=== PATIENT | female | born 1985 | race Caucasian/White ===

== ENCOUNTER → 2022-04-03 16:11 | Outpatient (BNVA) | payer MEDICAID, SELFPAY | PROVIDERS: Visit Provider Family Medicine | DX: F41.1 Generalized anxiety disorder (principal); N80.9 Endometriosis, unspecified; G47.00 Insomnia, unspecified; R87.619 Unspecified abnormal cytological findings in specimens from cervix uteri; F41.0 Panic disorder [episodic paroxysmal anxiety]; F17.200 Nicotine dependence, unspecified, uncomplicated; Z71.6 Tobacco abuse counseling | CPT/HCPCS: 80053; 84439; 84443; 85025 ==

== ENCOUNTER 2022-04-06 17:41 | Emergency (ER) | payer MEDICAID, SELFPAY ==
[2022-04-06 17:57] VITALS: BP 131/89; PULSE 78; RESP 15; TEMP 36.9; O2SAT 98; BMI 26.2
--- NOTE | 2022-04-06 18:15 | ED_ITS ---
HPI - Chest Pain General: Chief Complaint: Chest Pain Stated Complaint: chest pains over a couple of weeks Time Seen by Provider: 04/06/22 18:15 History of Present Illness: Ms. Bro is a 36-year-old lady with history of anxiety and tobaccoism presenting to the emergency department due to abnormal feeling chest discomfort. She reports being in her baseline health without significant change and was sitting at dinner when she had sudden onset of presyncopal type feeling associated with a warm pressure in her chest and upper and lower extremities. The majority of the symptoms have improved however still does have some. Reports this feels not similar to prior anxiety attacks. I ntensity symptoms when present with severe. Course is improved. No other specific changes in health, exacerbating, or alleviating factors identified. Patient unsure of family coronary artery disease history secondary to being adopted. 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 Psychiatric care Tobacco use disorder, moderate, dependence Surgical History History of appendectomy History of bilateral tubal ligation History of History of cholecystectomy History of tonsillectomy Family History Father Cancer lung, colon, leukemia Lung disease Mother Epilepsy Psychiatric illness Other Hyperlipidemia Hypertension Denies family history of Diabetes CAD (coronary artery disease) Clotting disorder Dementia Chronic kidney disease (CKD) Anesthesia complication Bleeding disorder Stroke Social History Smoking and tobacco status: current every day smoker cigarettes [ Other cigarette details: 1/2 PPD, 25PY] and e-cigarettes E-Cigarette Details: e- cigarette E-cig/vape details: 1 cartrage lasts 2 weeks Smoking risk assessment/counseling performed?: No Alcohol intake: never Desire information about alcohol rehabilitation?: No Counseling given: No Desire information about substance/drug rehabilitation?: No Counseling given: No Adopted: Yes Caregiver/support person: No Lives independently: Yes Marital status: Single Number of children: 3 Current occupational status: employed Current occupation: Food prep Current gender identity: Female Female Reproductive History: Date of last menstrual period: 03/07/22 Para: 3 Spontaneous abortions: Yes Physical Exam Const: COMMON NORMALS: patient oriented x3 and alert GENERAL APPEARANCE: cooperative and well developed HENMT: COMMON NORMALS: normocephalic and atraumatic HEAD & SCALP: normocephalic and atraumatic THROAT: posterior oropharynx normal Eye: COMMON NORMALS: conjunctivae normal CONJUNCTIVA: Yes conjunctivae normal SCLERA: sclerae normal Neck/C-Spine: COMMON NORMALS: supple GENERAL: Yes trachea midline Resp: COMMON NORMALS: normal respiratory effort EFFORT & INSPECTION: Yes able to speak in complete sentences Cardio: COMMON NORMALS: regular rate and regular rhythm RATE: regular rate RHYTHM: regular rhythm GI: COMMON NORMALS: Soft to palpation PALPATION: Yes Soft to palpation and No Tenderness to palpation present (GI) PERCUSSION: normal to percussion Extremity: GENERAL: Yes normal exam except as noted and No edema Neuro: COMMON NORMALS: patient oriented x3, CN's II-XII intact bilaterally, moves all extremities, no focal motor deficits and no sensory deficits noted SENSORIUM/ORIENTATION: Yes alert and No Orientation impaired Psych: COMMON NORMALS: mental status grossly normal and Normal thought process present THOUGHT PROCESS: Normal thought process present Course Vital Signs: Vital signs: Vital Signs Temperature 98.4 F 04/06/22 17:57 Pulse Rate 77 04/06/22 21:42 Respiratory Rate 16 04/06/22 21:42 Blood Pressure 122/86 04/06/22 21:42 Pulse Oximetry 99 04/06/22 21:42 Oxygen Delivery Me thod 04/06/22 21:42 MDM - Chest Pain Medical Decision Making 36-year-old lady presenting with chest discomfort and presyncopal type feeling that occurred at rest. Patient is nontoxic on exam without focal neurologic deficits. EKG shows sinus rhythm with first-degree AV block and nonspecific ST segment abnormalities. No STEMI. Hematologic and metabolic panel essentially unremarkable with exception of minimal hypokalemia, TSH normal. Troponin negative. D-dimer negative. Chest x-ray with no lobar consolidation or pneumothorax. IV fluids and potassium replenishment ordered. Patient mildly improved on reexamination. Etiology of patient's symptoms is somewhat unclear, may be related to anxiety versus other cause though does not appear to need inpatient management at this time. The results of ED evaluation were discussed with the patient including prescriptions and/or symptomatic cares (if applicable) including appropriate and responsible use, followup plan, and return precautions. The patient verbalized understanding and felt safe for discharge. Medical Records I reviewed the patient's medical records. Lab Data I reviewed the patient's lab results. : 04/06/22 18:41 04/06/22 18:41 Radiology Impressions Chest X-Ray 04/06/22 18: IMPRESSION: No acute findings. Laboratory Results WBC 9.4 10^3/uL (4.0-10.0) 04/06/22 18: RBC 4.68 10^6/uL (4.1-5.3) 04/06/22 18: Hgb 14.1 g/dL (11.5-15.3) 04/06/22 18: Hct 39.9 % (37.0-47.0) 04/06/22 18: MCV 85.3 fl (81-99) 04/06/22 18: MCH 30.1 pg (28.0-34.0) 04/06/22 18: MCHC 35.3 g/dL (30.0-36.0) 04/06/22 18: RDW 11.9 % (12.1-15.1) L 04/06/22 18: Plt Count 256 10^3/cmm (130-400) 04/06/22 18: MPV 10.9 fL (7.4-10.4) H 04/06/22 18: Neut % (Auto) 62.6 % 04/06/22 18: Lymph % (Auto) 27.5 % 04/06/22 18: [place] % (Auto) 7.4 % 04/06/22 18: Eos % (Auto) 1.2 % 04/06/22 18:41 Baso % (Auto) 1.0 % 04/06/22 18:41 Neut # (Auto) 5.91 10^3/uL (1.8-7.7) 04/06/22 18:41 Lymph # (Auto) 2.6 10^3/uL (0.8-4.8) 04/06/22 18:41 [place] # (Auto) 0.7 10^3/uL (0.2-0.9) 04/06/22 18:41 Eos # (Auto) 0.1 10^3/uL (0.0-0.8) 04/06/22 18:41 Baso # (Auto) 0.1 10^3/uL (0.0-0.1) 04/06/22 18:41 Nucleated RBC % (auto) 0 % 04/06/22 18:41 Nucleated RBCs # 0.0 /100WBC 04/06/22 18:41 D-Dimer <= 0.27 ug/mIFEU (0-0.59) 04/06/22 18:41 Sodium 137 mmol/L (136-145) 04/06/22 18:41 Potassium 3.4 mmol/L (3.5-5.1) L 04/06/22 18:41 Chloride 102 mmol/L (98-107) 04/06/22 18:41 Carbon Dioxide 23 mmol/L (22-29) 04/06/22 18:41 Anion Gap 15.4 (5-19) 04/06/22 18:41 BUN 12 mg/dL (6-20) 04/06/22 18:41 Creatinine 0.6 mg/dL (0.5-0.9) 04/06/22 18:41 GFR Calculation 111.9 mL/min (90-130) 04/06/22 18:41 Glucose 95 mg/dL (65-115) 04/06/22 18:41 Calculated Osmolality 284 mOsm/kg (285-295) L 04/06/22 18:41 Calcium 9.7 mg/dL (8.5-10.5) 04/06/22 18:41 Magnesium 2.0 mg/dL (1.7-2.3) 04/06/22 18:41 Total Bilirubin 0.4 mg/dL (0.15-1.2) 04/06/22 18:41 AST 11 U/L (0-32) 04/06/22 18:41 ALT 8 U/L (0-33) 04/06/22 18:41 Alkaline Phosphatase 57 U/L (35-105) 04/06/22 18:41 Troponin T Baseline 6 ng/L (0-10) 04/06/22 18:41 Troponin T 120 Minute 6.00 ng/L (0-10) 04/06/22 20:39 Delta Troponin T 0 ABS# (0-10) 04/06/22 20:39 Total Protein 6.8 g/dL (6.6-8.7) 04/06/22 18:41 Albumin 4.1 g/dL (3.5-5.2) 04/06/22 18:41 Globulin 2.7 g/dL (1.3-4.6) 04/06/22 18:41 Lipase 32 U/L (13-60) 04/06/22 18:41 TSH 0.69 uIU/mL (0.27-4.20) 04/06/22 18:41 HCG, Qual Negative (Negative) 04/06/22 19:55 Discharge Plan Discharge Patient Disposition: Home Clinical Impression: Chest pain, Paresthesia, Pre-syncope, Palpitations Condition: Stable Prescriptions: New buspirone 15 mg tablet 15 mg PO BID Qty: 30 1RF No Action lorazepam [Ativan] 1 mg tablet 1 mg PO BID PRN (Reason: anxiety) Qty: 10 0RF Prozac 20 mg capsule 20 mg PO QAM melatonin 10 mg capsule 10 mg PO BEDTIME Discharge Orders: Discharge ED (Routine); Ordered 04/06/22 Ordered By: Steve Mitchell Discharge Diet: Usual diet Discharge Activity: Increase activity as tolerated Patient Instructions: Chest Pain (ED), Paresthesia (ED) Activity Restrictions/Additional Instructions: Thank you for visiting the emergency department. You were seen evaluated for sudden onset of abnormal feeling. The exact cause of the symptoms is unclear though does not appear to need hospitalization at this time. Please follow-up with a primary care provider. Return to the emergency department for worsening symptoms or anything else that you are concerned about a feel needs emergency department evaluation. Coding Level of Care Code ED [employer] for Piero Morgan
--- NOTE | 2022-04-06 18:29 | ECG_ITS ---
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 Measurements Intervals [place] Rate: 76 P: 44 CO: 206 QRS: 72 QRSD: 94 T: 41 QT: 376 QTc: 425 Interpretive Statements SINUS RHYTHM No previous ECG available for comparison Electronically Signed On 04-06-2022 21:38:00 CDT by Tawanna Martin M.D. [id number]
--- NOTE | 2022-04-06 18:29 | XRR_ITS ---
PROCEDURE INFORMATION: Exam: XR Chest Exam date and time: 04/06/2022 6:41 PM Age: 36 years old Clinical indication: Pain; Chest pressure; Additional info: Cp TECHNIQUE: Imaging protocol: Radiologic exam of the chest. Views: 1 view. COMPARISON: No relevant prior studies available. FINDINGS: Lungs: Unremarkable. No consolidation. Pleural spaces: Unremarkable. No pleural effusion. No pneumothorax. Heart/Mediastinum: Unremarkable. No cardiomegaly. Bones/joints: Unremarkable. XR/XR chest 1V portable [id number] IMPRESSION: No acute findings.
[2022-04-06] MEDS: sodium chloride 0.9% 1,000 ML 999 ML IV (18:48)
[2022-04-06 18:52] LABS: Basophils # 0.1 10^3/uL (0.0-0.1); Eosinophils # 0.1 10^3/uL (0.0-0.8); Eosinophils % 1.2 %; Hematocrit 39.9 % (37.0-47.0); Hemoglobin 14.1 g/dL (11.5-15.3); Lymphocytes # 2.6 10^3/uL (0.8-4.8); Lymphocytes % 27.5 %; Mean Corpuscular HGB Conc 35.3 g/dL (30.0-36.0); Mean Corpuscular Hemoglobin 30.1 pg (28.0-34.0); Mean Corpuscular Volume 85.3 fl (81-99); Mean Platelet Volume 10.9 fL (7.4-10.4); Monocytes # 0.7 10^3/uL (0.2-0.9); Monocytes % 7.4 %; Neutrophils # 5.91 10^3/uL (1.8-7.7); Neutrophils % 62.6 %; Nucleated Red Blood Cells % 0 %; Platelet Count 256 10^3/cmm (130-400); Red Blood Count 4.68 10^6/uL (4.1-5.3); Red Cell Distribution Width 11.9 % (12.1-15.1); White Blood Count 9.4 10^3/uL (4.0-10.0)
[2022-04-06 19:01] LABS: D Dimer <= 0.27 ug/mIFEU (0-0.59)
[2022-04-06 19:15] LABS: Troponin(5th) Baseline 6 ng/L (0-10)
[2022-04-06 19:20] LABS: Alanine Aminotransferase 8 U/L (0-33); Albumin Level 4.1 g/dL (3.5-5.2); Alkaline Phosphatase 57 U/L (35-105); Anion Gap 15.4 (5-19); Aspartate Amino Transferase 11 U/L (0-32); Blood Urea Nitrogen 12 mg/dL (6-20); Calcium 9.7 mg/dL (8.5-10.5); Carbon Dioxide 23 mmol/L (22-29); Chloride 102 mmol/L (98-107); Globulin 2.7 g/dL (1.3-4.6); Glomerular Filtration Rate 111.9 mL/min (90-130); Glucose 95 mg/dL (65-115); Lipase 32 U/L (13-60); Osmolality Calculated 284 mOsm/kg (285-295); Potassium 3.4 mmol/L (3.5-5.1); Sodium 137 mmol/L (136-145); Thyroid Stimulating Hormone 0.69 uIU/mL (0.27-4.20); Total Bilirubin 0.4 mg/dL (0.15-1.2); Total Protein 6.8 g/dL (6.6-8.7)
[2022-04-06] MEDS: potassium chloride ER 20 mEq Tablet 40 MEQ PO (20:01)
[2022-04-06 20:11] LABS: HCG Qualitative Urine. Negative (Negative)
--- NOTE | 2022-04-06 21:12 | ECG_ITS ---
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 Measurements Intervals [place] Rate: 75 P: 61 [place]: 204 QRS: 88 QRSD: 93 T: 72 QT: 395 QTc: 441 Interpretive Statements SINUS RHYTHM MODERATE T-WAVE ABNORMALITY, CONSIDER ANTERIOR ISCHEMIA [-0.1+ mV T-WAVE IN V3/V4] Compared to ECG 04/06/2022 18:21:17 T-wave abnormality now present Possible ischemia now present Electronically Signed On 04-07-2022 7:48:00 CDT by Tawanna Martin M.D. [id number]
[2022-04-06 21:22] LABS: Troponin 5 2HR Delta 0 ABS# (0-10)
[2022-04-06 21:42] VITALS: BP 122/86; PULSE 77; RESP 16; O2SAT 99
== END 2022-04-06 21:45 | disposition home or self-care (01) ==
PROVIDERS: Emergency Provider Emergency Medicine
DX: R07.9 Chest pain, unspecified (principal); R20.2 Paresthesia of skin; R55 Syncope and collapse; R00.2 Palpitations; F17.210 Nicotine dependence, cigarettes, uncomplicated
CPT/HCPCS: 71045; 80053; 81025; 83690; 83735; 84443; 84484; 85025; 85378; 93005; 96360; 99285; J7030

== ENCOUNTER 2022-04-07 00:32 | Emergency (ER) | payer MEDICAID, SELFPAY ==
[2022-04-07 00:40] VITALS: BP 140/74; PULSE 76; RESP 16; TEMP 36.8; O2SAT 96
[2022-04-07 00:43] VITALS: BP 140/74; PULSE 76; RESP 16; TEMP 36.8; O2SAT 96; BMI 23.0
--- NOTE | 2022-04-07 01:26 | PC.NURSE ---
REPORT GIVEN TO SUSANA FLOWERS.
[2022-04-07] MEDS: LORazepam 1 mg Tablet PO (01:30)
[2022-04-07 02:50] VITALS: PULSE 83; RESP 16; O2SAT 98
--- NOTE | 2022-04-07 03:05 | ED.C_ITS ---
HPI - Psych General: Chief Complaint: Psychiatric Symptoms Stated Complaint: Mental Health Eval Time Seen by Provider: 04/07/22 00:54 Source: patient History of Present Illness: 36-year-old female with a history of anxiety and panic disorder. She was here a few hours ago to be evaluated for chest discomfort, likely related to her anxiety. Her work-up was negative at that point. She does not abuse any substances per her history. She notes that she has had anxiety that has been significant for the past week or so. She has had 10 hours of sleep in the last week. She denies homicidal or suicidal ideation. She was admitted as an inpatient in [place] several months ago, but this is her only psychiatric admission. She says I would love to stay and get some rest . complaint: other Onset (ago): day(s) Duration: constant History of same: Yes Relieving factors: none Context: significant life stressor Associated symptoms: Deny auditory hallucinations, visual hallucinations, delusions, depression, homicidal ideation or suicidal ideation Treatments prior to arrival: none Review of Systems Const: Denies: fever(s), chills or body aches Eyes: Denies: change in vision Card: Denies: chest pain or palpitations Resp: Denies: dyspnea, productive cough, non-productive cough or wheezing GI: Denies: abdominal pain, nausea, vomiting, diarrhea or hematochezia : Denies: difficulty voiding Skin/Breast: Denies: rash Neuro: Denies: headache(s), weakness in extremities, dizziness or confusion Psych: Denies: depression, visual hallucinations, auditory hallucinations, suicidal ideation or homicidal ideation [facility] ED PFSH: Medical History Abnormal Pap smear of cervix Anxiety Endometriosis Generalized anxiety disorder History of recent neurosurgical procedure 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 Psychiatric care Tobacco use disorder, moderate, dependence Surgical History History of appendectomy History of bilateral tubal ligation History of History of cholecystectomy History of tonsillectomy Family History (Updated 04/03/22 @ 15:[address]amez MD) Father Cancer lung, colon, leukemia Lung disease Mother Epilepsy Psychiatric illness Other Hyperlipidemia Hypertension Denies family history of Diabetes CAD (coronary artery disease) Clotting disorder Dementia Chronic kidney disease (CKD) Anesthesia complication Bleeding disorder Stroke Social History Smoking and tobacco status: current every day smoker cigarettes [ Other cigarette details: 1/2 PPD, 25PY] and e-cigarettes E-Cigarette Details: e- cigarette E-cig/vape details: 1 cartrage lasts 2 weeks Smoking risk assessment/counseling performed?: No Alcohol intake: never Desire information about alcohol rehabilitation?: No Counseling given: No Desire information about substance/drug rehabilitation?: No Counseling given: No Adopted: Yes Caregiver/support person: No Lives independently: Yes Marital status: Single Number of children: 3 Current occupational status: employed Current occupation: Food prep Current gender identity: Female Female Reproductive History: Date of last menstrual period: 03/07/22 Para: 3 Spontaneous abortions: Yes Physical Exam Const: COMMON NORMALS: no acute distress GENERAL APPEARANCE: cooperative, comfortable and anxious; not ill appearing HENMT: COMMON NORMALS: normocephalic, atraumatic and Normal external nose present HEAD & SCALP: normocephalic and atraumatic FACE & SINUS: normal facial exam NOSE: Normal external nose present Eye: COMMON NORMALS: Equal, round and reactive pupils present and EOMs intact bilaterally PUPIL: Yes Equal, round and reactive pupils present Neck/C-Spine: GENERAL: Yes trachea midline Chest: CHEST: Yes Symmetrical chest wall rise Resp: COMMON NORMALS: normal respiratory effort, No retractions, No use of accessory muscles and clear to auscultation bilaterally AUSCULTATION: clear to auscultation bilaterally Cardio: COMMON NORMALS: regular rate and regular rhythm RATE: regular rate RHYTHM: regular rhythm GI: COMMON NORMALS: Normal to inspection, nondistended, normoactive bowel sounds present Extremity: COMMON NORMALS: no pedal edema Neuro: GEREMIAS COMA SCALE: document GCS findings Geremias coma scale eye opening: Spontaneous [place] coma scale verbal response: Orientated [place] coma scale motor response: Obey commands Geremias coma scale total score: 15 SENSORY EXAM: Yes extremities (intact) Psych: COMMON NORMALS: speech normal SPEECH: Yes normal speech THOUGHT CONTENT: No delusions Skin: COMMON NORMALS: no rashes or lesions noted GENERAL SKIN EXAM: no rashes or lesions noted Course Vital Signs: Vital signs: Vital Signs Temperature 98.2 F 04/07/22 00:43 Pulse Rate 83 10/29/22 02:50 Respiratory Rate 16 04/07/22 02:50 Blood Pressure 140/74 04/07/22 00:43 Pulse Oximetry 98 04/07/22 02:50 Oxygen Delivery Me thod 04/07/22 00:43 MDM - Psych Medical Decision Making This patient is completely medically stable. She has had labs within the last few hours that are not remarkable. She presents with anxiety and panic symptoms. She denies other illness. She is not homicidal or suicidal. We currently do not have bed capacity for this patient in our neuropsychiatric unit, and she does not meet admission criteria. She was informed of this. We will treat her anxiety/panic. Zyprexa Zydis was ordered for her, but she declined this, stating that it gave her diarrhea in the past. She is given oral Ativan. She will be prescribed a short course of Ativan, and she has an appointment at [facility] on 04/26. Discharge Plan Discharge Patient Disposition: Home Clinical Impression: Anxiety, Panic disorder Condition: Stable Prescriptions: New Ativan 1 mg tablet 1 mg PO BID PRN (Reason: anxiety) Qty: 10 0RF No Action fluoxetine [Prozac] 20 mg capsule 20 mg PO DAILY Qty: 30 0RF melatonin 10 mg capsule 10 mg PO DAILY Qty: 90 0RF buspirone 15 mg tablet 15 mg PO BID Qty: 30 1RF Discharge Orders: Discharge ED (Routine); Ordered 04/07/22 Ordered By: Bacilio Gilbert Patient Instructions: Generalized Anxiety Disorder (ED), Panic Disorder (ED) Activity Restrictions/Additional Instructions: Keep your appointment with behavioral health. Medications as directed. In particular, use the medication to help you rest or sleep. Return for thoughts or wishes to harm your self or anyone else. Coding Level of Care Code ED [employer] for Piero Morgan
== END 2022-04-07 02:51 | disposition home or self-care (01) ==
PROVIDERS: Emergency Provider Emergency Medicine
DX: F41.9 Anxiety disorder, unspecified (principal); F41.0 Panic disorder [episodic paroxysmal anxiety]; F17.210 Nicotine dependence, cigarettes, uncomplicated
CPT/HCPCS: 99283

== ENCOUNTER 2022-04-07 19:57 | Emergency (ER) | payer MEDICAID, SELFPAY ==
[2022-04-07 20:44] VITALS: BP 129/81; PULSE 95; RESP 15; TEMP 36.9; O2SAT 99; BMI 26.6
--- NOTE | 2022-04-07 21:11 | W.ED.PSYCHS ---
Documented by User: KELLY Barnett 04/07/22 23:13 HPI - Psych General: Chief Complaint: Psychiatric Symptoms Stated Complaint: Mental health eval Time Seen by Provider: 04/07/22 20:53 History of Present Illness: Patient is a 36-year-old female comes to the ED for mental health evaluation. She was seen here in the ED for same complaint last night. She has a history of anxiety and takes lorazepam to help with her anxiety. Her anxiety is currently elevated and she states that during these times she gets more paranoid and is afraid to go out in public. She states that she is always looking over her shoulder when driving or when out in the public. Denies any SI or HI. Denies any alcohol or drug use. Associated symptoms: Deny homicidal ideation or suicidal ideation Review of Systems Const: Denies: fever(s), chills or fatigue Eyes: Denies: change in vision or eye discomfort ENMT: Denies: throat pain, odynophagia, nasal discharge or nasal congestion Card: Denies: chest pain, palpitations, edema, swelling of feet/ankles, dyspnea on exertion or orthopnea Resp: Denies: dyspnea, productive cough or non-productive cough GI: Denies: abdominal pain, nausea, vomiting, diarrhea, constipation or hematochezia : Denies: flank pain, dysuria or hematuria Musc: Denies: neck pain, back pain or extremity swelling Skin/Breast: Denies: rash or new lesions Neuro: Denies: headache(s), numbness in extremities or weakness in extremities Psych: Reports: anxiety and paranoia; Denies: suicidal ideation or homicidal ideation [facility] ED PFSH: Medical History Abnormal Pap smear of cervix Anxiety Endometriosis Generalized anxiety disorder History of recent neurosurgical procedure 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 Psychiatric care Tobacco use disorder, moderate, dependence Surgical History History of appendectomy History of bilateral tubal ligation History of History of cholecystectomy History of tonsillectomy Family History Father Cancer lung, colon, leukemia Lung disease Mother Epilepsy Psychiatric illness Other Hyperlipidemia Hypertension Denies family history of Diabetes CAD (coronary artery disease) Clotting disorder Dementia Chronic kidney disease (CKD) Anesthesia complication Bleeding disorder Stroke Social History Smoking and tobacco status: current every day smoker cigarettes [ Other cigarette details: 1/2 PPD, 25PY] and e-cigarettes E-Cigarette Details: e-cigarette E-cig/vape details: 1 cartrage lasts 2 weeks Smoking risk assessment/counseling performed?: No Alcohol intake: never Desire information about alcohol rehabilitation?: No Counseling given: No Desire information about substance/drug rehabilitation?: No Counseling given: No Adopted: Yes Caregiver/support person: No Lives independently: Yes Marital status: Single Number of children: 3 Current occupational status: employed Current occupation: Food prep Current gender identity: Female Female Reproductive History: Date of last menstrual period: 03/10/22 Para: 3 Spontaneous abortions: Yes Physical Exam Const: COMMON NORMALS: no acute distress, patient oriented x3, healthy appearing and alert GENERAL APPEARANCE: cooperative and comfortable HENMT: COMMON NORMALS: normocephalic HEAD & SCALP: normocephalic MOUTH: Normal oral and palatal mucosa present THROAT: posterior oropharynx normal and uvula midline Neck/C-Spine: COMMON NORMALS: supple GENERAL: Yes normal visual inspection Resp: COMMON NORMALS: normal respiratory effort, No retractions, No use of accessory muscles and clear to auscultation bilaterally AUSCULTATION: clear to auscultation bilaterally Cardio: COMMON NORMALS: regular rate, regular rhythm, S1 normal heart sound present, S2 normal heart sound present, No gallops present (Cardio), No clicks present (Cardio), No murmurs present (Cardio) and Peripheral pulses 2+ throughout RATE: regular rate RHYTHM: regular rhythm HEART SOUNDS: S1 normal heart sound present and S2 normal heart sound present PERIPHERAL PULSES: Peripheral pulses 2+ throughout GI: COMMON NORMALS: Normal to inspection, nondistended, normoactive bowel sounds present, Soft to palpation, non-tender and no masses PALPATION: Yes Soft to palpation : COMMON NORMALS: Yes no CVA tenderness BLADDER/KIDNEY EXAM: Yes no CVA tenderness Back/Pelvis: COMMON NORMALS: no CVA tenderness Extremity: COMMON NORMALS: normal to inspection Neuro: COMMON NORMALS: patient oriented x3 SENSORIUM/ORIENTATION: Yes alert GAIT: Yes Normal gait present Psych: COMMON NORMALS: mental status grossly normal, Normal thought process present, cooperative, normal affect, speech normal, activity/motor behavior normal, denies homicidal ideation and denies suicidal ideation SPEECH: Yes normal speech THOUGHT PROCESS: Normal thought process present Skin: GENERAL SKIN EXAM: dry skin Course Reevaluation(s): Reevaluation #1: I went in to talk with patient about my conversation with Dr. Claros and how she does not meet criteria for admission into the NPU and that a NPU was full and will not be having any discharges probably till Saturday. Patient then stated that she did not have anywhere to go and that she is homeless. She says that part of the reason she wants to get into the NPU is because she has nowhere to go. Time: 21:28 Consultations: Consultation #1: I called Dr. Claros and talked with him about patient case. He recommended that patient does not meet admission criteria at this time and the Neuropsych Unit is currently full. She can follow-up with behavioral health at her scheduled appointment on April 26. Time: 21:20 Vital Signs: Vital signs: Vital Signs Temperature 98.4 F 04/07/22 20:44 Pulse Rate 95 04/07/22 20:44 Respiratory Rate 15 04/07/22 20:44 Blood Pressure 129/81 04/07/22 20:44 Pulse Oximetry 99 04/07/22 20:44 Oxygen Delivery Me thod 04/07/22 20:44 MDM - Psych Medical Decision Making Patient was seen here in the ED yesterday on April 07 and was trying to get admitted to NPU so she could have a place to sleep tonight. patient is completely medically stable.? She presents with anxiety and panic symptoms.? She denies other illness.? She is not homicidal or suicidal.? I spoke with Dr. Claros and he stated that patient does not meet admission criteria at this time and we currently do not have bed capacity for this patient in our neuropsychiatric unit either. She was informed of this and afterward she said part of her complaint is that she is homeless and does not have a place to go and was looking for a place to stay in the NPU. She is stable for discharge home and told to continue taking her previously prescribed medications. She has an appointment at [facility] on 04/26. Discharge Plan Discharge Patient Disposition: Home Clinical Impression: Anxiety Condition: Stable Prescriptions: No Action fluoxetine [Prozac] 20 mg capsule 20 mg PO DAILY Qty: 30 0RF melatonin 10 mg capsule 10 mg PO DAILY Qty: 90 0RF buspirone 15 mg tablet 15 mg PO BID Qty: 30 1RF Ativan 1 mg tablet 1 mg PO BID PRN (Reason: anxiety) Qty: 10 0RF Discharge Orders: Discharge ED (Routine); Ordered 04/07/22 Ordered By: Dusty Alexander Discharge Diet: Regular Discharge Activity: Resume usual activity Patient Instructions: Anxiety (ED) Activity Restrictions/Additional Instructions: Follow-up with behavioral health at your next scheduled appointment on April 26. Continue taking all home medications as previously prescribed. Return to the ER or your medical provider if condition worsens. Please read and understand discharge instructions. Thank you for choosing [facility] for your healthcare needs today. Please realize this is an emergency room and that we are providing you with a medical screening exam and this may not be complete and all inclusive of all the testing and or work up that you may need to determine your ailment or severity of your illness. It is very important that you follow up as instructed or that you return to the Emergency Department should you have concerns or if your condition changes or worsens in any way. 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 Psychiatric care Tobacco use disorder, moderate, dependence Surgical History History of appendectomy History of bilateral tubal ligation History of History of cholecystectomy History of tonsillectomy Family History Father Cancer lung, colon, leukemia Lung disease Mother Epilepsy Psychiatric illness Other Hyperlipidemia Hypertension Denies family history of Diabetes CAD (coronary artery disease) Clotting disorder Dementia Chronic kidney disease (CKD) Anesthesia complication Bleeding disorder Stroke Social History Smoking and tobacco status: current every day smoker cigarettes [ Other cigarette details: 1/2 PPD, 25PY] and e-cigarettes E-Cigarette Details: e-cigarette E-cig/vape details: 1 cartrage lasts 2 weeks Smoking risk assessment/counseling performed?: No Alcohol intake: never Desire information about alcohol rehabilitation?: No Counseling given: No Desire information about substance/drug rehabilitation?: No Counseling given: No Adopted: Yes Caregiver/support person: No Lives independently: Yes Marital status: Single Number of children: 3 Current occupational status: employed Current occupation: Food prep Current gender identity: Female Course Vital Signs: Vital signs: Vital Signs Temperature 98.4 F 04/07/22 20:44 Pulse Rate 95 04/07/22 20:44 Respiratory Rate 15 04/07/22 20:44 Blood Pressure 129/81 04/07/22 20:44 Pulse Oximetry 99 04/07/22 20:44 Oxygen Delivery Me thod 04/07/22 20:44 MDM - Psych Medical Decision Making Patient was seen here in the ED yesterday on April 07 and was trying to get admitted to NPU so she could have a place to sleep tonight. patient is completely medically stable.? She presents with anxiety and panic symptoms.? She denies other illness.? She is not homicidal or suicidal.? I spoke with Dr. Claros and he stated that patient does not meet admission criteria at this time and we currently do not have bed capacity for this patient in our neuropsychiatric unit either. She was informed of this and afterward she said part of her complaint is that she is homeless and does not have a place to go and was looking for a place to stay in the NPU. She is stable for discharge home and told to continue taking her previously prescribed medications. She has an appointment at [facility] on 04/26. This patient was originally seen by Mr. Benjamin PA-C.? I agree with his history, evaluation, and treatment. Discharge Plan Discharge Patient Disposition: Home Clinical Impression: Anxiety Condition: Stable Prescriptions: No Action fluoxetine [Prozac] 20 mg capsule 20 mg PO DAILY Qty: 30 0RF melatonin 10 mg capsule 10 mg PO DAILY Qty: 90 0RF buspirone 15 mg tablet 15 mg PO BID Qty: 30 1RF Ativan 1 mg tablet 1 mg PO BID PRN (Reason: anxiety) Qty: 10 0RF Discharge Orders: Discharge ED (Routine); Ordered 04/07/22 Ordered By: Dusty Alexander Discharge Diet: Regular Discharge Activity: Resume usual activity Patient Instructions: Anxiety (ED) Activity Restrictions/Additional Instructions: Follow-up with behavioral health at your next scheduled appointment on April 26. Continue taking all home medications as previously prescribed. Return to the ER or your medical provider if condition worsens. Please read and understand discharge instructions. Thank you for choosing [facility] for your healthcare needs today. Please realize this is an emergency room and that we are providing you with a medical screening exam and this may not be complete and all inclusive of all the testing and or work up that you may need to determine your ailment or severity of your illness. It is very important that you follow up as instructed or that you return to the Emergency Department should you have concerns or if your condition changes or worsens in any way. Coding Level of Care Code ED Geospatial Technologist for Piero Morgan Exam Comprehensive
== END 2022-04-07 21:38 | disposition home or self-care (01) ==
PROVIDERS: Emergency Provider Physician Assistant
DX: F41.9 Anxiety disorder, unspecified (principal); F17.210 Nicotine dependence, cigarettes, uncomplicated
CPT/HCPCS: 99283

== ENCOUNTER 2022-04-10 15:50 | Inpatient (IN) | payer MEDICAID, SELFPAY ==
[2022-04-10 15:59] VITALS: BP 134/81; PULSE 97; RESP 16; TEMP 36.6; O2SAT 98; BMI 26.2
--- NOTE | 2022-04-10 17:24 | ED.C_ITS ---
HPI - Psych General: Chief Complaint: Psychiatric Symptoms Stated Complaint: SI Time Seen by Provider: 04/10/22 16:29 Source: patient Mode of arrival: ambulatory Limitations: no limitations History of Present Illness: This patient returns to our emergency department because of ongoing symptoms of anxiety, avoidance and other behaviors which have affected her work life balance. She has been directed to return to the emergency department by her employer as they are concerned about her wellbeing. She states these symptoms have progressed over the past year or so. She states that she withdraws from individuals and does not feel that she can leave her house during any other time other than daylight. She states that with the time change she is not able to leave her house in time to make it to work and its affected her work situation. He states the symptoms been present for some time but she feels they have worsened recently. She is currently living in [place] by herself having moved here from [place] to get a change in pace. She relates that she cannot seem to sustain any relationships although she does have an ex and 3 children in [place]. She states she does smoke tobacco but does not use alcohol or street drugs. She states she has no thoughts of harming herself or others and has never harbored those thoughts. She denies any auditory or visual hallucinations. She states that she has had approximately a 20 pound weight loss and she is uncertain how that happened. She is currently not taking any medications. She has been in the emergency department twice and she feels that she needs to be admitted to this facility for additional evaluation. Associated symptoms: Reports no associated symptoms; Deny auditory hallucinations, visual hallucinations, homicidal ideation or suicidal ideation Review of Systems Const: Denies: fever(s) or chills Eyes: Denies: change in vision ENMT: Denies: throat pain, odynophagia, dental pain, nasal discharge or nasal congestion Card: Denies: chest pain, palpitations or irregular heart rhythm Resp: Denies: dyspnea, productive cough or non-productive cough GI: Denies: abdominal pain, nausea, vomiting or hematemesis : Denies: flank pain, difficulty voiding or dysuria Musc: Denies: neck pain, back pain, extremity pain or extremity swelling Skin/Breast: Denies: rash or pruritus Neuro: Denies: headache(s), numbness in extremities, weakness in extremities, vertigo or Slurred speech present Psych: Reports: anxiety and panic attacks; Denies: visual hallucinations, auditory hallucinations, suicidal ideation or homicidal ideation Endo: Denies: polyuria or polydipsia PFSH ED PFSH: Medical History Abnormal Pap smear of cervix Anxiety Endometriosis Generalized anxiety disorder History of recent neurosurgical procedure 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 Psychiatric care Tobacco use disorder, moderate, dependence Surgical History History of appendectomy History of bilateral tubal ligation History of History of cholecystectomy History of tonsillectomy Family History Father Cancer lung, colon, leukemia Lung disease Mother Epilepsy Psychiatric illness Other Hyperlipidemia Hypertension Denies family history of Diabetes CAD (coronary artery disease) Clotting disorder Dementia Chronic kidney disease (CKD) Anesthesia complication Bleeding disorder Stroke Social History Smoking and tobacco status: current every day smoker cigarettes [ Other cigarette details: 1/2 PPD, 25PY] and e-cigarettes E-Cigarette Details: e- cigarette E-cig/vape details: 1 cartrage lasts 2 weeks Smoking risk assessment/counseling performed?: No Alcohol intake: never Desire information about alcohol rehabilitation?: No Counseling given: No Desire information about substance/drug rehabilitation?: No Counseling given: No Adopted: Yes Caregiver/support person: No Lives independently: Yes Marital status: Single Number of children: 3 Current occupational status: employed Current occupation: Food prep Current gender identity: Female Female Reproductive History: Date of last menstrual period: 03/10/22 Para: 3 Spontaneous abortions: Yes Physical Exam Narrative: EXAM NARRATIVE: Good eye contact. Speech is goal-directed. Const: COMMON NORMALS: no acute distress, average body habitus and alert GENERAL APPEARANCE: cooperative, comfortable and well kempt ORIENT ATION/CONSCIOUSNESS: Yes awake HENMT: COMMON NORMALS: normocephalic, TM's normal bilaterally, Normal nasal mucous membranes and turbinates present, moist oral mucous membranes and oropharynx normal HEAD & SCALP: normocephalic FACE & SINUS: normal facial exam NOSE: Normal nasal mucous membranes and turbinates present TYMPANIC MEMBRANE: TM's normal bilaterally and other (Decreased mobility bilaterally) Eye: COMMON NORMALS: Equal, round and reactive pupils present, EOMs intact bilaterally and conjunctivae normal CONJUNCTIVA: Yes conjunctivae normal PUPIL: Yes Equal, round and reactive pupils present Neck/C-Spine: COMMON NORMALS: full ROM, no JVD and No carotid bruits Chest: COMMONS NORMALS: normal inspection of the chest Resp: COMMON NORMALS: normal respiratory effort, No use of accessory muscles and clear to auscultation bilaterally AUSCULTATION: clear to auscultation bilaterally Cardio: COMMON NORMALS: no JVD, regular rate, regular rhythm, No murmurs present (Cardio) and Peripheral pulses 2+ throughout RATE: regular rate RHYTHM: regular rhythm PERIPHERAL PULSES: Peripheral pulses 2+ throughout GI: COMMON NORMALS: Normal to inspection, nondistended, normoactive bowel sounds present and Soft to palpation PALPATION: Yes Soft to palpation : COMMON NORMALS: Yes no CVA tenderness BLADDER/KIDNEY EXAM: Yes no CVA tenderness Back/Pelvis: COMMON NORMALS: no CVA tenderness, thoracic and lumbar spine normal to inspection and thoraco-lumbar ROM normal Extremity: COMMON NORMALS: normal to inspection, full ROM, capillary refill normal and no pedal edema Neuro: COMMON NORMALS: moves all extremities, no focal motor deficits and no sensory deficits noted SENSORIUM/ORIENTATION: Yes alert Psych: COMMON NORMALS: mental status grossly normal, Normal thought process present, speech normal, denies hallucinations, denies homicidal ideation and denies suicidal ideation APPEARANCE: Yes well kempt ATTITUDE: Yes calm and Yes engaged ACTIVITY/MOTOR BEHAVIOR: Yes appropriate eye contact SPEECH: Yes normal speech THOUGHT PROCESS: Normal thought process present THOUGHT CONTENT: Yes Normal thought content present ATTENTION/CONCENTRATION: Yes attention grossly intact MEMORY/COGNITION: Yes memory grossly intact INSIGHT: Fair insight present (Psych) Skin: COMMON NORMALS: no rashes or lesions noted and turgor normal GENERAL SKIN EXAM: no rashes or lesions noted and turgor normal Course Reevaluation(s): Reevaluation #1: Patient remained stable and cooperative. I informed her that I was able to discuss with attending psychiatrist who agreed to admit the patient but she had to commit to full evaluation and recommended treatment. She voiced understanding agreed. Time: 19:49 Consultations: Consultation #1: Discussed with attending psychiatrist who agreed admit the patient. Time: 19:48 Vital Signs: Vital signs: Vital Signs Temperature 97.9 F 11/01/22 15:59 Pulse Rate 97 04/10/22 15:59 Respiratory Rate 16 04/10/22 15:59 Blood Pressure 134/81 04/10/22 15:59 Pulse Oximetry 98 04/10/22 15:59 Oxygen Delivery Me thod 04/10/22 15:59 MDM - Psych Medical Decision Making This is third visit for this patient with progressive generalized anxiety and symptoms suggestive of agoraphobia condition. No evidence at this time of other ongoing medical conditions that would preclude mental health evaluation and treatment. Medical Records I reviewed the patient's medical records. The lastPrevious laboratories from 2 days were reviewed and no evidence of significant concerning abnormalities. Lab Data I reviewed the patient's lab results. Laboratory Results TSH 0.70 uIU/mL (0.27-4.20) 04/10/22 18:07 Urine Opiates Screen Negative ng/mL (Negative) 04/10/22 Unknown Ur Barbiturates Screen Negative ng/mL (Negative) 04/10/22 Unknown Ur Phencyclidine Scrn Negative ng/mL (Negative) 04/10/22 Unknown Ur Amphetamines Screen Negative ng/mL (Negative) 04/10/22 Unknown U Benzodiazepines Scrn Positive ng/mL (Negative) H 04/10/22 Unknown Urine Cocaine Screen Negative ng/mL (Negative) 04/10/22 Unknown U Marijuana (THC) Screen Negative ng/mL (Negative) 04/10/22 Unknown Discharge Plan Discharge Patient Disposition: Admitted As Inpatient Clinical Impression: Anxiety, Agoraphobia, unspecified Condition: Stable Prescriptions: No Action buspirone 15 mg tablet 15 mg PO BID Qty: 30 1RF lorazepam [Ativan] 1 mg tablet 1 mg PO BID PRN (Reason: anxiety) Qty: 10 0RF Prozac 20 mg capsule 20 mg PO QAM melatonin 10 mg capsule 10 mg PO BEDTIME Coding Level of Care Code ED Math Specialist for Piero Fwcarmina Exam Comprehensive
[2022-04-10 18:04] LABS: Amphetamines Screen Urine Negative (Negative); Barbiturates Screen Urine Negative (Negative); Benzodiazepines Screen Urine Positive (Negative); Cocaine Screen Urine Negative (Negative); Opiate Screen Urine Negative (Negative); PCP Screen Urine Negative (Negative); THC Screen Urine Negative (Negative)
[2022-04-10 19:50] VITALS: BP 132/85; PULSE 74; RESP 18; O2SAT 96
[2022-04-10 22:00] VITALS: BP 132/85; PULSE 74; RESP 18; TEMP 36.6; O2SAT 96
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
[2022-04-10] MEDS: LORazepam 1 mg Tablet PO (23:29)
[2022-04-10] MEDS: trazodone 50 mg Tablet PO (23:31)
[2022-04-11 06:00] VITALS: RESP 18
[2022-04-11] MEDS: BuSPIRONE 10 mg Tablet 15 MG PO (08:08)
[2022-04-11] MEDS: nicotine 21 mg Patch 1 PATCH TRANSDERMA (08:08)
[2022-04-11] MEDS: fluoxetine 20 mg Capsule PO (08:14)
[2022-04-11 14:00] VITALS: BP 113/56; PULSE 67; RESP 18; TEMP 37.1; O2SAT 97
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
[2022-04-11] MEDS: quetiapine XR (24HR) 50 mg Tablet PO (18:53)
[2022-04-11 22:00] VITALS: BP 125/70; PULSE 73; RESP 18; TEMP 36.8; O2SAT 96
[2022-04-12 06:00] VITALS: BP 105/66; PULSE 66; RESP 18; TEMP 36.9; O2SAT 96
[2022-04-12] MEDS: fluoxetine 10 mg Capsule PO (08:17)
[2022-04-12] MEDS: fluoxetine 20 mg Capsule PO (08:17)
[2022-04-12] MEDS: nicotine 21 mg Patch 1 PATCH TRANSDERMA (08:51)
[2022-04-12 14:00] VITALS: BP 122/82; PULSE 69; RESP 16; TEMP 36.6; O2SAT 98
[2022-04-12] MEDS: quetiapine XR (24HR) 50 mg Tablet PO (18:17)
--- NOTE | 2022-04-12 18:32 | W.PM.NPUPNS ---
Subjective NPU Subjective: Patient presents today reporting that she is doing okay. She reports that that she has been really suffering with anxiety that is overwhelming. She reports that she has been trying to manage as best she can working at [employer] but at times has to find places to escape to while at work. She was having significant worry and anxiety whenever she leaves the house we discussed the risks, benefits and alternatives of restarting her BuSpar and she understood and agreed proceed as documented in this note. Mental Status Exam MSE Comments: This is a well-nourished well-developed white female in hospital scrubs who appeared her stated age with adequate grooming and eye contact. No abnormal movements except for psychomotor retardation. Cooperative with exam in mild to moderate distress. Speech was decreased rate and volume. Her mood was described as depressed and anxious her affect appeared mood congruent and somewhat restricted in range. Thought process organized. Thought content: Patient denied suicidal or homicidal ideation, there is no clear evidence of delusions and none reported, she denied auditory or visual hallucinations. Attention and concentration appeared intact and memory appeared liable but none were formally tested. She was alert and oriented x3. Insight appeared limited. Her judgment is poor. Her impulse control appeared adequate. Vitals/I&O/Wt Last Vital Signs Temp 98.0 F 04/12/22 22:00 Pulse 67 04/12/22 22:00 Resp 17 04/12/22 22:00 BP 116/80 04/12/22 22:00 Pulse Ox 97 04/12/22 22:00 O2 Del Method 04/12/22 22:00 A&P Assessment and plan (1) PTSD (post-traumatic stress disorder): (2) Bipolar II disorder: (3) Borderline personality disorder: Plan Deanne is a 36-year-old white female with a history of PTSD and likely bipolar 2 disorder along with borderline personality traits who is admitted to due to a decline in functioning with odd unusual believes and clear problems with managing self-care currently having limited help with an adjustment in her medications. 1.? Continue current medications, started seroquel 50mg at night to target PTSD symptoms. Restart BuSpar 15 mg p.o. twice daily. 2.? Encourage individual, group and milieu therapy 3.? Continue q-15 minute check for safety 4.? Recommend sober living treatment at the highest level of care to which the patient is willing to commit. Involuntary Hold Information 96 Hour Hold: 96 Hour Involuntary Admission: No Attestations NPU Medical Necessity Statement*: Inpatient hospitalization is medically necessary and the clinically appropriate intervention at this time. We will monitor medications and make changes as indicated. Likely length of stay is 3-5 days. Coding Level of Care Code Acute Project Construction Assistant [facility] Diagnoses PTSD (post-traumatic stress disorder) F43.10 Bipolar II disorder F31.81 Borderline personality disorder F60.3
[2022-04-12 20:50] VITALS: BP 116/80; PULSE 67; RESP 17; TEMP 36.7; O2SAT 97
[2022-04-12 22:00] VITALS: BP 116/80; PULSE 67; RESP 17; TEMP 36.7; O2SAT 97
[2022-04-13 06:00] VITALS: BP 134/63; PULSE 65; RESP 16; TEMP 37; O2SAT 97
[2022-04-13] MEDS: nicotine 21 mg Patch 1 PATCH TRANSDERMA (09:53)
[2022-04-13] MEDS: fluoxetine 20 mg Capsule PO (09:54)
[2022-04-13] MEDS: BuSPIRONE 10 mg Tablet 15 MG PO ×2 (09:54→17:28)
[2022-04-13] MEDS: fluoxetine 10 mg Capsule PO (09:54)
--- NOTE | 2022-04-13 12:46 | W.PM.NPUPNS ---
Subjective NPU Subjective: Patient presents today reporting that she still struggling with her anxiety experience. She agreed to restart her BuSpar at 15 mg p.o. twice daily after discussion of the risks, benefits and alternatives of the medication and she understood and agreed to proceed as is documented in this note. There was some indication, though she was not seeming ready to have a full discussion, that there may be some trauma element to why her anxiety has gotten so out of control. Mental Status Exam MSE Comments: This is a well-nourished well-developed white female in hospital scrubs who appeared her stated age with adequate grooming and eye contact. No abnormal movements except for psychomotor retardation. Cooperative with exam in mild to moderate distress. Speech was decreased rate and volume. Her mood was described as depressed and anxious, her affect appeared mood congruent and somewhat restricted in range. Thought process organized. Thought content: Patient denied suicidal or homicidal ideation, there is no clear evidence of delusions and none reported, she denied auditory or visual hallucinations. Attention and concentration appeared intact and memory appeared liable but none were formally tested. She was alert and oriented x3. Insight appeared limited. Her judgment is poor. Her impulse control appeared adequate. Vitals/I&O/Wt Last Vital Signs Temp 98.6 F 04/13/22 06:00 Pulse 65 04/13/22 06:00 Resp 16 04/13/22 06:00 BP 134/63 04/13/22 06:00 Pulse Ox 97 04/13/22 06:00 O2 Del Method 04/13/22 06:00 A&P Assessment and plan (1) PTSD (post-traumatic stress disorder): (2) Bipolar II disorder: (3) Borderline personality disorder: Plan Deanne is a 36-year-old white female with a history of PTSD and likely bipolar 2 disorder along with borderline personality traits who is admitted to due to a decline in functioning with odd unusual believes and clear problems with managing self-care currently having limited help with an adjustment in her medications. 1.? Continue current medications, started seroquel 50mg at night to target PTSD symptoms. Restarted BuSpar 15 mg p.o. twice daily. 2.? Encourage individual, group and milieu therapy 3.? Continue q-15 minute check for safety 4.? Recommend sober living treatment at the highest level of care to which the patient is willing to commit. Involuntary Hold Information 96 Hour Hold: 96 Hour Involuntary Admission: No Attestations NPU Medical Necessity Statement*: Inpatient hospitalization is medically necessary and the clinically appropriate intervention at this time. We will monitor medications and make changes as indicated. Likely length of stay is 2-4 days. Coding Level of Care Code Acute Data Conversion Developer for [facility] Fwd Diagnoses PTSD (post-traumatic stress disorder) F43.10 Bipolar II disorder F31.81 Borderline personality disorder F60.3
[2022-04-13 14:00] VITALS: BP 110/70; PULSE 68; RESP 16; TEMP 36.3; O2SAT 95
[2022-04-13] MEDS: quetiapine XR (24HR) 50 mg Tablet PO (17:28)
[2022-04-13] MEDS: OLANZapine 5 mg ODT PO (17:28)
[2022-04-13 20:34] VITALS: BP 136/87; PULSE 73; RESP 18; TEMP 36.8; O2SAT 96
[2022-04-14 06:00] VITALS: BP 112/71; PULSE 61; RESP 16; TEMP 36.7; O2SAT 96
[2022-04-14] MEDS: fluoxetine 10 mg Capsule PO (08:08)
[2022-04-14] MEDS: fluoxetine 20 mg Capsule PO (08:09)
[2022-04-14] MEDS: BuSPIRONE 10 mg Tablet 15 MG PO ×2 (08:09→17:46)
--- NOTE | 2022-04-14 10:46 | W.PM.NPUPNS ---
Subjective NPU Subjective: Patient presents today reporting that she is having a much better day than yesterday. She reports that she feels the medication is helpful and she started to feel some little optimism about the future. Patient with a smile on face and first sighting of a non frown since she has been here. We discussed working with the treatment team on Saturday to identify a plan for discharge given that she is uncertain if staying in the area or returning to where she has been before in the best decision for her. Attempted to discuss possible trauma that had been alluded to, but she did not seem to be interested in discussing and did not identify that there was some issue to discuss. Mental Status Exam MSE Comments: This is a well-nourished well-developed white female in hospital scrubs who appeared her stated age with adequate grooming and eye contact. No abnormal movements. Cooperative with exam in no acute distress. Speech was more normal rate and volume. Her mood was described as feeling better, her affect appeared congruent. Thought process organized. Thought content: Patient denied suicidal or homicidal ideation, there is no clear evidence of delusions and none reported, she denied auditory or visual hallucinations. Attention and concentration appeared intact and memory appeared reliable but none were formally tested. She was alert and oriented x3. Insight and judgment appeared improving. Her impulse control improving. Vitals/I&O/Wt Last Vital Signs Temp 98.0 F 04/14/22 06:00 Pulse 61 04/14/22 06:00 Resp 16 04/14/22 06:00 BP 112/71 04/14/22 06:00 Pulse Ox 96 04/14/22 06:00 O2 Del Method 04/13/22 14:00 A&P Assessment and plan (1) PTSD (post-traumatic stress disorder): (2) Bipolar II disorder: (3) Borderline personality disorder: Plan Deanne is a 36-year-old white female with a history of PTSD and likely bipolar 2 disorder along with borderline personality traits who is admitted to due to a decline in functioning with odd unusual believes and clear problems with managing self-care currently having limited help with an adjustment in her medications. 1.? Continue current medications, started seroquel 50mg at night to target PTSD symptoms. Restarted BuSpar 15 mg p.o. twice daily. 2.? Encourage individual, group and milieu therapy 3.? Continue q-15 minute check for safety 4.? Recommend sober living treatment at the highest level of care to which the patient is willing to commit. Involuntary Hold Information 96 Hour Hold: 96 Hour Involuntary Admission: No Attestations NPU Medical Necessity Statement*: Inpatient hospitalization is medically necessary and the clinically appropriate intervention at this time. We will monitor medications and make changes as indicated. Likely length of stay is 2-4 days. Coding Level of Care Code Acute Insulation Cutter And Former for [facility] Fwd Diagnoses PTSD (post-traumatic stress disorder) F43.10 Bipolar II disorder F31.81 Borderline personality disorder F60.3
[2022-04-14] MEDS: nicotine 21 mg Patch 1 PATCH TRANSDERMA (13:29)
[2022-04-14 14:00] VITALS: BP 112/59; PULSE 61; RESP 16; TEMP 36.6; O2SAT 97
[2022-04-14] MEDS: quetiapine XR (24HR) 50 mg Tablet PO (17:46)
[2022-04-14 22:00] VITALS: BP 125/73; PULSE 62; RESP 16; TEMP 36.9; O2SAT 96
[2022-04-15 06:00] VITALS: BP 115/78; PULSE 60; RESP 15; TEMP 36.6; O2SAT 98; BMI 26.2
--- NOTE | 2022-04-15 07:49 | PC.NURSE ---
shift assessment denies SI/HI/AVH currently, mood pleasant but flat affect. stated I think I'm a little bit constipated, I had a bowel movement today but it was hard to get out .... encouraged by staff to drink plenty of fluids and try to ambulate often.
[2022-04-15] MEDS: BuSPIRONE 10 mg Tablet 15 MG PO ×2 (08:01→17:45)
[2022-04-15] MEDS: fluoxetine 20 mg Capsule PO (08:01)
[2022-04-15] MEDS: fluoxetine 10 mg Capsule PO (08:01)
[2022-04-15] MEDS: nicotine 21 mg Patch 1 PATCH TRANSDERMA (08:12)
--- NOTE | 2022-04-15 09:19 | P.NPUPN_ITS ---
Subjective NPU Subjective: Patient presents today continuing to report improvement. She reports that she is tolerating the medication and feeling optimistic. She does have some anxiety about what she is going to do after discharge. We discussed the plan for her to work with the treatment team in the morning to get a clear plan about management of a concerns about follow-up etc. Mental Status Exam MSE Comments: This is a well-nourished well-developed white female in hospital scrubs who appeared her stated age with adequate grooming and eye contact. No abnormal movements. Cooperative with exam in no acute distress. Speech was more normal rate and volume. Her mood was described as better, her affect appeared congruent. Thought process organized. Thought content: Patient denied suicidal or homicidal ideation, there is no clear evidence of delusions and none reported, she denied auditory or visual hallucinations. Attention and concentration appeared intact and memory appeared reliable but none were formall y tested. She was alert and oriented x3. Insight and judgment appeared improving. Her impulse control improving. Vitals/I&O/Wt Last Vital Signs Temp 97.8 F 04/15/22 06:00 Pulse 60 04/15/22 06:00 Resp 15 04/15/22 06:00 BP 115/78 04/15/22 06:00 Pulse Ox 98 04/15/22 06:00 O2 Del Method 04/14/22 22:00 Weight last 48 hrs Weight 67.585 kg Weight 67.132 kg A&P Assessment and plan (1) PTSD (post-traumatic stress disorder): (2) Bipolar II disorder: (3) Borderline personality disorder: Plan Deanne is a 36-year-old white female with a history of PTSD and likely bipolar 2 disorder along with borderline personality traits who is admitted to due to a decline in functioning with odd unusual believes and clear problems with managing self-care currently having limited help with an adjustment in her medications. 1.? Continue current medications, started seroquel 50mg at night to target PTSD symptoms. Restarted BuSpar 15 mg p.o. twice daily. 2.? Encourage individual, group and milieu therapy 3.? Continue q-15 minute check for safety 4.? Recommend sober living treatment at the highest level of care to which the patient is willing to commit. Involuntary Hold Information 96 Hour Hold: 96 Hour Involuntary Admission: No Attestations NPU Medical Necessity Statement*: Inpatient hospitalization is medically necessary and the clinically appropriate intervention at this time. We will monitor medications and make changes as indicated. Likely length of stay is 1-3 days. Coding Level of Care Code Acute Tool And Die Technician for [facility] Fwd Diagnoses PTSD (post-traumatic stress disorder) F43.10 Bipolar II disorder F31.81 Borderline personality disorder F60.3
[2022-04-15] MEDS: blistex lip oint 7 gm Tube 1 APPLIC TOPICAL (13:14)
[2022-04-15 14:00] VITALS: BP 127/73; PULSE 65; RESP 16; TEMP 36.7; O2SAT 98
[2022-04-15] MEDS: quetiapine XR (24HR) 50 mg Tablet PO (17:45)
[2022-04-15 19:54] VITALS: BP 150/74; PULSE 50; RESP 16; TEMP 36.4; O2SAT 99
[2022-04-16 06:00] VITALS: BP 117/57; PULSE 59; RESP 14; TEMP 36.8; O2SAT 97
[2022-04-16] MEDS: fluoxetine 20 mg Capsule PO (08:11)
[2022-04-16] MEDS: fluoxetine 10 mg Capsule PO (08:11)
[2022-04-16] MEDS: BuSPIRONE 10 mg Tablet 15 MG PO (08:11)
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
[2022-04-16 11:25] VITALS: BP 117/57; PULSE 59; RESP 14; TEMP 36.8; O2SAT 97
== END 2022-04-16 15:06 | disposition home or self-care (01) | DRG 885 ==
LOC: ER 20:30 → NP 20:48
PROVIDERS: Admitting Provider Psychiatry & Neurology Psychiatry; Emergency Provider Emergency Medicine; Visit Provider Psychiatry & Neurology Psychiatry
DX: F31.81 Bipolar II disorder (principal); F60.3 Borderline personality disorder; Z81.1 Family history of alcohol abuse and dependence; F15.11 Other stimulant abuse, in remission; F12.91 Cannabis use, unspecified, in remission; F14.91 Cocaine use, unspecified, in remission; Z59.01 Sheltered homelessness; F41.1 Generalized anxiety disorder; F17.290 Nicotine dependence, other tobacco product, uncomplicated; F43.10 Post-traumatic stress disorder, unspecified
CPT/HCPCS: 80306; 84443; 97150; 97165; 99285

== ENCOUNTER 2022-09-16 09:43 | Emergency (ER) | payer BC, MEDICAID, SELFPAY ==
[2022-09-16 09:48] VITALS: BP 126/72; PULSE 56; RESP 16; TEMP 36.9; O2SAT 97
--- NOTE | 2022-09-16 09:52 | ED_ITS ---
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 Psychiatric care Tobacco use disorder, moderate, dependence Surgical History History of appendectomy History of bilateral tubal ligation History of History of cholecystectomy History of tonsillectomy Family History Father Cancer lung, colon, leukemia Lung disease Mother Epilepsy Psychiatric illness Other Hyperlipidemia Hypertension Denies family history of Diabetes CAD (coronary artery disease) Clotting disorder Dementia Chronic kidney disease (CKD) Anesthesia complication Bleeding disorder Stroke Social History (Updated 04/26/22 @ 09:01 by Steve Canseco LPN) Smoking and tobacco status: current every day smoker cigarettes Packs smoked per day: 0.5 Years cigarettes smoked: 22 [ Other cigarette details: 1/2 PPD, 25PY] and e-cigarettes E-Cigarette Details: vaporizer device and with nicotine E-cig/vape details: Refill/lasts 1 day. Quit status (tobacco): has tried quititng Number of times tried to quit tobacco: 2 Second hand smoke exposure: Yes Smoking risk assessment/counseling performed?: No Alcohol intake: former Desire information about alcohol rehabilitation?: No Counseling given: No Desire information about substance/drug rehabilitation?: No Counseling given: No Adopted: Yes Caregiver/support person: No Lives independently: Yes Marital status: Single Number of children: 3 Current occupational status: employed Current occupation: Food prep Current gender identity: Female Female Reproductive History: Para: 3 Spontaneous abortions: Yes Course Vital Signs: Vital signs: Vital Signs Temperature 98.5 F 09/16/22 09:48 Pulse Rate 56 L 09/16/22 09:48 Respiratory Rate 16 09/16/22 09:48 Blood Pressure 126/72 09/16/22 09:48 Pulse Oximetry 97 09/16/22 09:48 Oxygen Delivery Mi thod 09/16/22 09:48 Discharge Plan Discharge Condition: Stable Prescriptions: No Action risperidone [Risperdal] 0.5 mg tablet 0.5 mg PO BID Qty: 60 1RF Coding Level of Care Code ED [employer] Developer for Piero Morgan
--- NOTE | 2022-09-16 09:59 | ED_ITS ---
HPI - Nausea/Vomiting/Diarrhea General: Chief complaint: Nausea/Vomiting/Diarrhea Stated complaint: n/v 4xdays Time Seen by Provider: 09/16/22 09:51 History of Present Illness: Ms Bro is a 37-year-old lady presenting to the emergency department for nausea vomiting. Reports subacute onset of symptoms approximately 3 days ago without known specific provoking event. She is multiple episodes per day which seems to be exacerbated by exertion and eating. Notes mild generalized abdominal pain with burning pain in the epigastric region. Overall course of symptoms has persisted. No other specific changes in health, exacerbating, or alleviating factors identified. Onset (ago): day(s) Description of vomiting: watery Associated nausea: Yes Associated abdominal pain: Yes Location of pain: Diffuse and Epigastric Pain consistency: constant Severity: mild Quality: aching and other Exacerbating factors: eating Relieving factors: none Associated symtoms: Reports malaise, nausea and other Review of Systems General: Reports: 10 or more systems reviewed and unremarkable except in HPI and below Const: Reports: malaise GI: Reports: nausea PFSH ED PFSH: Medical History (Updated 09/26/22 @ 08:57 by Toya Navas) Abnormal Pap smear of cervix Anxiety Endometriosis Generalized anxiety disorder History of recent neurosurgical procedure 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 Psychiatric care Tobacco use disorder, moderate, dependence Surgical History (Updated 09/26/22 @ 08:57 by Toya Navas) History of appendectomy History of bilateral tubal ligation History of History of cholecystectomy History of tonsillectomy Family History (Updated 09/26/22 @ 09:24 by Toya Navas) Father Cancer lung, colon, leukemia Lung disease Mother Epilepsy Psychiatric illness Other Adopted Hyperlipidemia Hypertension Denies family history of Colon cancer Ovarian cancer Diabetes Heart disease Breast cancer Uterine cancer Thyroid disease Stroke Female Reproductive History: Para: 3 Spontaneous abortions: Yes Physical Exam Const: COMMON NORMALS: alert GENERAL APPEARANCE: cooperative and well developed HENMT: COMMON NORMALS: normocephalic and atraumatic HEAD & SCALP: normocephalic and atraumatic Eye: COMMON NORMALS: conjunctivae normal CONJUNCTIVA: Yes conjunctivae normal SCLERA: sclerae normal Neck/C-Spine: COMMON NORMALS: supple GENERAL: Yes trachea midline Resp: COMMON NORMALS: clear to auscultation bilaterally EFFORT & INSPECTION: Yes able to speak in complete sentences AUSCULTATION: clear to auscultation bilaterally Cardio: COMMON NORMALS: regular rate and regular rhythm RATE: regular rate RHYTHM: regular rhythm GI: COMMON NORMALS: Soft to palpation PALPATION: Yes Soft to palpation and No Tenderness to palpation present (GI) Extremity: GENERAL: Yes normal exam except as noted and No edema Neuro: COMMON NORMALS: moves all extremities SENSORIUM/ORIENTATION: Yes alert and No Orientation impaired Psych: COMMON NORMALS: mental status grossly normal and Normal thought process present THOUGHT PROCESS: Normal thought process present Course Vital Signs: Vital signs: Vital Signs Temperature 98.5 F 09/16/22 09:48 Pulse Rate 55 L 09/16/22 13:49 Respiratory Rate 22 H 09/16/22 11:33 Blood Pressure 118/83 09/16/22 13:49 Pulse Oximetry 96 09/16/22 13:49 Oxygen Delivery Me thod Room Air 09/16/22 09:48 MDM - Nausea/Vomiting/Diarrhea Medical Decision Making 37-year-old lady presenting with nausea vomiting. Exam as above. Patient is nontoxic. Labs with mild leukocytosis and normal hemoglobin and platelet count. Metabolic panel with dehydration and hypokalemia. Squamous epithelial contamination without convincing evidence of urinary tract infection.. CT demonstrates incidental findings of no clear etiology of patient's symptoms. Discussed with patient. Patient treated with analgesia, potassium supplementation, IV fluids, antiemetic and improved on reassessment. She is able to tolerate p.o. intake. Most likely etiology of patient symptoms is nonspecific nausea vomiting with dehydration improved with ED treatment. The results of ED evaluation were discussed with the patient including prescriptions and/or symptomatic cares (if applicable) including appropriate and responsible use, followup plan, and return precautions. The patient verbalized understanding and felt safe for discharge. Medical Records I reviewed the patient's medical records. Lab Data I reviewed the patient's lab results. 09/16/22 10:15 09/16/22 10:15 Radiology Impressions Abdomen/Pelvis CT 09/16/22 11:28 IMPRESSION: 1. Possible trace blood in the dependent left bladder. Correlate with urinalysis. Consider CT urogram. 2. Nonobstructive bilateral renal stones. No hydronephrosis or obstructive ureteral stone. 3. Hepatomegaly. 4. Cardiomegaly. Laboratory Results WBC 11.1 10^3/uL (4.0-10.0) H 04/09/23 10:15 RBC 5.03 10^6/uL (4.1-5.3) 09/16/22 10:15 Hgb 14.4 g/dL (11.5-15.3) 09/16/22 10:15 Hct 42.7 % (37.0-47.0) 09/16/22 10:15 MCV 84.9 fl (81-99) 09/16/22 10:15 MCH 28.6 pg (28.0-34.0) 09/16/22 10:15 MCHC 33.7 g/dL (30.0-36.0) 09/16/22 10:15 RDW 12.1 % (12.1-15.1) 09/16/22 10:15 Plt Count 230 10^3/cmm (130-400) 09/16/22 10:15 MPV 11.0 fL (7.4-10.4) H 09/16/22 10:15 Neut % (Auto) 76.1 % 09/16/22 10:15 Lymph % (Auto) 14.1 % 09/16/22 10:15 [place] % (Auto) 9.0 % 09/16/22 10:15 Eos % (Auto) 0.1 % 09/16/22 10:15 Baso % (Auto) 0.2 % 09/16/22 10:15 Neut # (Auto) 8.43 10^3/uL (1.8-7.7) H 09/16/22 10:15 Lymph # (Auto) 1.6 10^3/uL (0.8-4.8) 09/16/22 10:15 [place] # (Auto) 1.0 10^3/uL (0.2-0.9) H 09/16/22 10:15 Eos # (Auto) 0.0 10^3/uL (0.0-0.8) 09/16/22 10:15 Baso # (Auto) 0.0 10^3/uL (0.0-0.1) 09/16/22 10:15 Nucleated RBC % (auto) 0 % 09/16/22 10:15 Nucleated RBCs # 0.0 /100WBC 09/16/22 10:15 Sodium 130 mmol/L (136-145) L 09/16/22 10:15 Potassium 3.4 mmol/L (3.5-5.1) L 09/16/22 10:15 Chloride 92 mmol/L (98-107) L 09/16/22 10:15 Carbon Dioxide 28 mmol/L (22-29) 09/16/22 10:15 Anion Gap 13.4 (5-19) 09/16/22 10:15 BUN 11 mg/dL (6-20) 09/16/22 10:15 Creatinine 0.7 mg/dL (0.5-0.9) 09/16/22 10:15 GFR Calculation 93.2 mL/min (90-130) 09/16/22 10:15 Glucose 90 mg/dL (65-115) 09/16/22 10:15 Calculated Osmolality 269 mOsm/kg (285-295) L 09/16/22 10:15 Calcium 9.9 mg/dL (8.5-10.5) 09/16/22 10:15 Total Bilirubin 0.6 mg/dL (0.15-1.2) 09/16/22 10:15 AST 9 U/L (0-32) 09/16/22 10:15 ALT 10 U/L (0-33) 09/16/22 10:15 Alkaline Phosphatase 53 U/L (35-105) 09/16/22 10:15 Total Protein 7.1 g/dL (6.6-8.7) 09/16/22 10:15 Albumin 4.4 g/dL (3.5-5.2) 09/16/22 10:15 Globulin 2.7 g/dL (1.3-4.6) 09/16/22 10:15 Lipase 16 U/L (13-60) 09/16/22 10:15 HCG, Qual Negative (Negative) 09/16/22 10:15 Urine Color Yellow (Yellow) 09/16/22 10:36 Urine Appearance Cloudy (CLEAR) A 09/16/22 10:36 Urine pH 8 (5-7) H 09/16/22 10:36 Ur Specific [place] 1.015 (1.005-1.030) 09/16/22 10:36 Urine Protein Neg (Negative) 09/16/22 10:36 Urine Glucose (UA) Norm (Normal) 09/16/22 10:36 Urine Ketones Negative (Negative) 09/16/22 10:36 Urine Blood 3+ (Negative) H 09/16/22 10:36 Urine Nitrate Negative (Negative) 09/16/22 10:36 Urine Bilirubin Neg (Negative) 09/16/22 10:36 Prot Sulfosalicylic Acd Negative (Negative) 09/16/22 10:36 Urine Urobilinogen Norm mg/dL (Negative) 09/16/22 10:36 Ur Leukocyte Esterase Negative (Negative) 09/16/22 10:36 Urine RBC 5-10 /hpf (0-2) H 09/16/22 10:36 Urine WBC 0-4 /hpf (0-5) H 09/16/22 10:36 Ur Squamous Epith Cells 10-15 /hpf (0-5) H 09/16/22 10:36 Amorphous Sediment 2+ /hpf 09/16/22 10:36 Urine Bacteria 1+ /hpf (NONE) H 09/16/22 10:36 Discharge Plan Discharge Patient Disposition: Home Clinical Impression: Abdominal pain, Dehydration, Nausea and vomiting, Hematuria Condition: Stable Prescriptions: No Action No Known Home Medications Discharge Orders: Discharge ED (Routine); Ordered 09/16/22 Ordered By: Steve Mitchell Discharge Diet: Advance as tolerated and Clear Liquid Discharge Activity: Increase activity as tolerated Patient Instructions: Dehydration (ED), Acute Nausea and Vomiting (ED), Ab dominal Pain (ED), Opioid Safety Activity Restrictions/Additional Instructions: Thank you for visiting the emergency department. You were seen and evaluated for nausea and vomiting associated with abdominal pain. The exact cause of your symptoms is unclear though does not appear to need hospitalization at this time. I will prescribe pain medication, antacid medication, and antinausea medication. You may use [id number] medications such as acetaminophen and ibuprofen for pain however please do not exceed the daily recommended dosage as listed on the packaging and please keep in mind that many namebrand medications contain the same active ingredients. Please avoid these medications if previously instructed to do so by another physician due to other underlying medical condition. Please follow-up with a primary care provider. You were noted to have some blood in your urine, the exact cause of this is unclear, I recommend repeat urinalysis with your primary care provider and further investigation as deemed appropriate by them if hematuria persists. Return to the emergency department for anything that you are concerned about and feel needs emergency department evaluation. Coding Level of Care Code ED Machinist Outside for Piero Morgan
[2022-09-16 10:20] LABS: Basophils % 0.2 %; Eosinophils % 0.1 %; Hematocrit 42.7 % (37.0-47.0); Hemoglobin 14.4 g/dL (11.5-15.3); Lymphocytes # 1.6 10^3/uL (0.8-4.8); Lymphocytes % 14.1 %; Mean Corpuscular HGB Conc 33.7 g/dL (30.0-36.0); Mean Corpuscular Hemoglobin 28.6 pg (28.0-34.0); Mean Corpuscular Volume 84.9 fl (81-99); Neutrophils # 8.43 10^3/uL (1.8-7.7); Neutrophils % 76.1 %; Nucleated Red Blood Cells % 0 %; Platelet Count 230 10^3/cmm (130-400); Red Blood Count 5.03 10^6/uL (4.1-5.3); Red Cell Distribution Width 12.1 % (12.1-15.1); White Blood Count 11.1 10^3/uL (4.0-10.0)
[2022-09-16 10:21] VITALS: BP 121/76; PULSE 59; O2SAT 99
[2022-09-16] MEDS: ondansetron 2 mg/ML SDV 2 mL 4 MG IVP (10:37)
[2022-09-16] MEDS: sodium chloride 0.9% 1,000 ML 999 ML IV (10:37)
[2022-09-16 10:45] LABS: Alanine Aminotransferase 10 U/L (0-33); Albumin Level 4.4 g/dL (3.5-5.2); Alkaline Phosphatase 53 U/L (35-105); Anion Gap 13.4 (5-19); Aspartate Amino Transferase 9 U/L (0-32); Blood Urea Nitrogen 11 mg/dL (6-20); Calcium 9.9 mg/dL (8.5-10.5); Carbon Dioxide 28 mmol/L (22-29); Chloride 92 mmol/L (98-107); Globulin 2.7 g/dL (1.3-4.6); Glomerular Filtration Rate 93.2 mL/min (90-130); Glucose 90 mg/dL (65-115); Lipase 16 U/L (13-60); Osmolality Calculated 269 mOsm/kg (285-295); Potassium 3.4 mmol/L (3.5-5.1); Sodium 130 mmol/L (136-145); Total Bilirubin 0.6 mg/dL (0.15-1.2); Total Protein 7.1 g/dL (6.6-8.7)
[2022-09-16 10:46] LABS: HCG, Serum Qual Negative (Negative)
[2022-09-16 11:13] LABS: Add Urine Microscopic? YES; Bilirubin Urine Neg (Negative); Blood Urine 3+ (Negative); Glucose Urine UA Norm (Normal); Ketones Urine Negative (Negative); Leukocyte Esterase Urine Negative (Negative); Nitrate Urine Negative (Negative); Protein Urine Neg (Negative); Specific Gravity, Urine 1.015 (1.005-1.030); Sulfosalicylic Acid Urine Negative (Negative); Urine Appearance Cloudy (CLEAR); Urine Color Yellow (Yellow); Urobilinogen Urine Norm (Negative); pH Urine 8 (5-7)
[2022-09-16 11:16] LABS: Amorphous Sediment Urine 2+ /hpf; Bacteria Urine 1+ /hpf; WBC Urine 0-4 /hpf (0-5)
[2022-09-16 11:23] LABS: Add Urine Culture? No
--- NOTE | 2022-09-16 11:28 | CTR_ITS ---
PROCEDURE INFORMATION: Exam: CT Abdomen And Pelvis Without Contrast Exam date and time: 09/16/2022 11:44 AM Age: 37 years old Clinical indication: Abdominal pain; Localized; Upper; Prior surgery; Surgery type: C-sec x 3; Tubal; Chelle; Appy; Additional info: Abd pain, n/v TECHNIQUE: Imaging protocol: Computed tomography of the abdomen and pelvis without contrast. Radiation optimization: All CT scans at this facility use at least one of these dose optimization techniques: automated exposure control; mA and/or kV adjustment per patient size (includes targeted exams where dose is matched to clinical indication); or iterative reconstruction. REPORTING DATA: Count of CT and Cardiac NM exams in prior 12 months: This patient has received 0 known CTs and 0 known cardiac nuclear medicine studies in the 12 months prior to the current study. COMPARISON: CR XR chest 1V portable [id number] 04/06/2022 6:41 PM RADIATION DOSE METRICS: Total DLP (mGy-cm): 335.62 FINDINGS: Lungs: Mild scarring at the lung bases. Heart is enlarged. No pericardial effusion. No hiatal hernia. Liver: The liver is enlarged measuring 19.1 cm. There is focal fatty infiltration along the anterior aspect of the falciform ligament. Gallbladder and bile ducts: Status post cholecystectomy. Extrahepatic biliary ductal dilatation is noted. This is common following cholecystectomy. Pancreas: The pancreas is unremarkable. Spleen: The spleen is unremarkable. Adrenal glands: The adrenal glands are unremarkable. Kidneys and ureters: Nonobstructive bilateral renal stones. No hydronephrosis. Stomach and bowel: The stomach and small bowel are unremarkable. The colon is unremarkable. Appendix: Status post appendectomy. Intraperitoneal space: No free intraperitoneal air is seen. Vasculature: No abdominal aortic aneurysm. Lymph nodes: No retroperitoneal lymphadenopathy. Urinary bladder: Possible trace blood in the dependent left bladder. Correlate with urinalysis. Reproductive: Probable small involuted uterine fibroid. Bones/joints: No acute fracture is identified. CT/CT abdomen pelvis wo con [id number] IMPRESSION: 1. Possible trace blood in the dependent left bladder. Correlate with urinalysis. Consider CT urogram. 2. Nonobstructive bilateral renal stones. No hydronephrosis or obstructive ureteral stone. 3. Hepatomegaly. 4. Cardiomegaly.
[2022-09-16 11:33] VITALS: RESP 22; O2SAT 98
[2022-09-16] MEDS: morphine 4 mg/mL SDV 1 mL IVP (11:33)
[2022-09-16] MEDS: metoclopramide 5 mg/mL SDV 2 mL 10 MG IVP (11:34)
[2022-09-16 12:02] VITALS: BP 145/71; PULSE 55; O2SAT 98
[2022-09-16] MEDS: lidocaine 2% viscous 15 ML, aluminum-mag hydrox-simethicon 30 ML, sucralfate oral liq 1 GM PO (13:17)
[2022-09-16 13:22] VITALS: BP 118/83; PULSE 55; O2SAT 99
[2022-09-16] MEDS: potassium chloride ER 20 mEq Tablet 40 MEQ PO (13:31)
[2022-09-16 13:49] VITALS: BP 118/83; PULSE 55; O2SAT 96
--- NOTE | 2022-09-20 14:56 | DCPLANNER ---
Patient does not have a primary care physician - caser in unable to call patient due to not having a good phone number.
== END 2022-09-16 13:50 | disposition home or self-care (01) ==
PROVIDERS: Physician Assistant; Emergency Provider Emergency Medicine
DX: R11.2 Nausea with vomiting, unspecified (principal); R10.9 Unspecified abdominal pain; R31.9 Hematuria, unspecified
CPT/HCPCS: 74176; 80053; 81001; 83690; 84703; 85025; 96361; 96374; 96375; 99285; J2270; J2405; J2765; J7030